=== PATIENT | male | born 1980 | race Caucasian/White ===

== ENCOUNTER 2016-08-13 12:48 | Emergency (ER) | payer MEDICARE, MEDICAID ==
[~2016-08-13] VITALS: Ht 175.3 cm; Wt 129.0 kg
[~2016-08-13 12:48] MED LIST: BUPR150T9 PO; CEFD300C9 PO; DEPRESSION PO; HYDR-3754 PO; LACT10SO33 PO; LINA145C PO; LORA10TA76 PO; NAPR500T3 PO; NF-FLON16G; PRED20TA PO; ROPI1TAB2 PO; RSP1T PO; SERT50TA PO
--- OUTSIDE RECORDS SUMMARY | 2016-08-13 12:54 | XMS REPORT | Continuity of Care Document ---
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 Name Role Phone MICHAELA ROMANO MD PCP [phone] Insurance Providers Payer Name Policy Number Subscriber Name Relationship Medicare A And B [id number] Zane Ching I 18 Self / Same As Patient [place] Medicaid [id number] Zane Ching I 18 Self / Same As Patient Advance Directives Directive Response Recorded Date/Time Advanced Directives No 03/09/16 1:15pm Chief Complaint and Reason for Visit Chief Complaint Dental Complaint Reason for Visit Risk for sexually transmitted disease [id number] Problems Active Problems Medical Problem Onset Date Status Acute superficial venous thrombosis of left lower extremity Unknown Acute Ankle injury ~11/21/2013 Acute Blood in stool Unknown Acute Edema of face 04/02/2013 Acute Fever 12/17/2012 Acute Gastroenteritis Unknown Acute Hematuria Unknown Acute Mucosa vesicle Unknown Acute Pain in calf 12/17/2012 Acute Petechiae Unknown Acute Photosensitivity dermatitis Unknown Acute Risk for sexually transmitted disease Unknown Acute Medications Current Home Medications Medication Dose Units Route Directions Days/Qty Instructions Start Date Ropinirole Hcl 1 Mg 1 Mg ORAL Daily 10/30/14 Past Home Medications Medication Directions Ordered Status Risperidone 1 Mg Tab, 1 Mg Oral Daily 12/17/12 Discontinued [Depression] , 25 Mg Oral Daily 12/17/12 Discontinued Cefdinir 300 Mg Capsule, 300 Mg Oral Twice A Day 12/17/12 Discontinued Hydrocodone Bit/Acetaminophen 1 Tab Tab, 1 Tab Oral Q 4H Prn 12/17/12 Discontinued Naproxen 500 Mg Tablet, 500 Mg Oral Twice A Day 11/21/13 Discontinued Prednisone 20 Mg Tablet, 20 Mg Oral As Directed 09/21/14 Discontinued Loratadine 10 Mg Tablet, 10 Mg Oral Daily 10/30/14 Discontinued Fluticasone Propionate 16 Gm [place], 16 Gm Nasal Daily 10/30/14 Discontinued Lactulose 10 Gm/15 Ml Solution, 10 Gm Oral Daily 10/30/14 Discontinued Linaclotide 145 Mcg Capsule, 145 Mcg Oral Daily 10/30/14 Discontinued Bupropion Hcl 150 Mg Tablet.er, 150 Mg Oral Daily 10/30/14 Discontinued Sertraline Hcl (Zoloft) 50 Mg Tablet, 50 Mg Oral Daily 09/15/15 Discontinued Social History Query Response Start Date Stop Date Smoking Status Current every day smoker Hospital Discharge Instructions No hospital discharge instructions. Plan of Care Discharge Date 03/09/16 3:25pm Disposition 01 HOME OR SELF-CARE Prescriptions See Medication Section Referrals MICHAELA ROMANO MD - Additional Instructions/Education See your doctor next week. ED RUI if any worse. Wrinse mouth with dilute salt solution after meals. Some of your test results may not be complete prior to your leaving the Emergency Department. The Emergency Department is not authorized to give test results over the phone. Please contact the doctor's office listed in this packet of information for your final results. Follow up with your primary care physician or return to the Emergency Department for worsening or worrisome symptoms. * Emergency Department phone number: [phone], x [phone]* MEDICAL RECORD If you need copies of your X-rays, call [phone]. If you need copies of your medical record, including lab results, a signed authorization for release of records will be required. A telephone call for release of Health Information is not allowed. BILLING Billing can sometimes be confusing and frustrating. To help avoid confusion in the future, please take a moment to acquaint yourself with the billing parties for services. SERVICE BILLING [facility] Emergency Room Services [facility] Physician Services [facility] X-rays [facility] Patients will receive bills for services from the appropriate provider. If you have any questions about your [facility] bill, our staff will be happy to assist you. Please call [phone], and ask for the billing department. THANK YOU for choosing [facility] as your emergency care provider! Care Plan and Goals ~~Discharge Care Plan~~ Problem: Sore throat Goal: Pain decreased from sore throat. Instructions: Gargle with warm salt water to help reduce swelling and pain. Drink plenty of fluids. Hot fluids, such as tea or soup, may help decrease throat irritation. Take medication(s) as directed. Follow up with primary care physician as directed. Functional Status No functional status results. Allergies, Adverse Reactions, Alerts Allergen Type Severity Reaction Status Last Updated Penicillin Allergy Unknown Active 03/09/16 Azithromycin Allergy Unknown Active 12/31/15 Immunizations No immunization records. Vital Signs Acute Vital Signs Vital Response Date/Time Temperature (Fahrenheit) 97.6 03/09/2016 3:36pm Pulse 91 bpm 03/09/2016 3:36pm Respirations 16 03/09/2016 3:36pm Height 5 ft 9 in Weight 276 lb Body Mass Index 40.0 kg/m^2 Results Laboratory Results Test Name Result Units Flags Reference Collection Date/Time Result Date/ Time Comments White Blood Count 5.20 10^3uL 4.0-11.0 03/09/2016 2:15pm 03/09/2016 2: 26pm Red Blood Count 4.67 10^6uL 4.50-5.50 03/09/2016 2:15pm 03/09/2016 2: 26pm Hemoglobin 15.3 g/dL 13.5-17.0 03/09/2016 2:15pm 03/09/2016 2:26pm Hematocrit 41.00 % 39.00-50.00 03/09/2016 2:15pm 03/09/2016 2:26pm Mean Corpuscular Volume 88 FL 80-100 03/09/2016 2:15pm 03/09/2016 2: 26pm Mean Corpuscular Hemoglobin 32.8 PG 26.0-34.0 03/09/2016 2:152015 2:26pm Mean Corpuscular Hemoglobin Concent 37.3 g/dL H 31.0-37.0 03/09/2016 2: 1503/09/2016 2:26pm Red Cell Distribution Width 11.6 % L 11.8-15.6 03/09/2016 2:152015 2:26pm Platelet Count 289 10^3uL 150-450 03/09/2016 2:1503/09/2016 2:26pm Mean Platelet Volume 9.0 FL 6.0-9.5 03/09/2016 2:1503/09/2016 2: 26pm Neutrophils (%) (Auto) 57 % 51-67 03/09/2016 2:03/09/2016 2:26pm Lymphocytes (%) (Auto) 29 % 20-46 03/09/2016 2:03/09/2016 2:26pm Monocytes (%) (Auto) 11 % 3-11 03/09/2016 2:03/09/2016 2:26pm Eosinophils (%) (Auto) 1 % 0-4 03/09/2016 2:15pm 03/09/2016 2:26pm Basophils (%) (Auto) 1 % 0-2 03/09/2016 2:03/09/2016 2:26pm Neutrophils # (Auto) 3.0 X10^3 03/09/2016 2:03/09/2016 2:26pm Lymphocytes # (Auto) 1.5 X10^3 03/09/2016 2:03/09/2016 2:26pm Monocytes # (Auto) 0.6 X10^3 03/09/2016 2:pm 03/09/2016 2:26pm Eosinophils # (Auto) 0.1 10^3uL 03/09/2016 2:pm 03/09/2016 2:26pm Basophils # (Auto) 0.0 10^3uL 03/09/2016 2:15pm 03/09/2016 2:26pm Sodium Level 142 mmol/L 135-150 03/09/2016 2:15pm 03/09/2016 2:37pm Potassium Level 3.9 mmol/L 3.5-5.1 03/09/2016 2:03/09/2016 2:37pm Chloride Level 105 mmol/L 98-108 03/09/2016 2:03/09/2016 2:37pm Carbon Dioxide Level 28 mmol/L 22-03/09/2016 2:1503/09/2016 2: 37pm Anion Gap 13.1 MEQ/L 3-15 03/09/2016 2:03/09/2016 2:37pm Blood Urea Nitrogen 10 mg/dL 7-03/09/2016 2:03/09/2016 2:37pm Creatinine 0.86 mg/dL 0.8-1.5 03/09/2016 2:03/09/2016 2:37pm BUN/Creatinine Ratio 12 -03/09/2016 2:03/09/2016 2:37pm Estimat Glomerular Filtration Rate 123.2 03/09/2016 2:2015 2:37pm Estimated GFR (Non- 101.8 03/09/2016 2:2015 2:37pm Glucose Level 99 mg/dL 70-110 03/09/2016 2:03/09/2016 2:37pm Calculated Osmolality 274 mosm/L L 280-300 03/09/2016 2:03/09/2016 2:37pm Calcium Level 9.5 mg/dL 8.8-10.8 03/09/2016 2:03/09/2016 2:37pm Calcium/Ionized Calcium Ratio 3.9 mg/dL 3.8-4.6 03/09/2016 2:03/09 2:37pm Total Bilirubin 1.2 mg/dL H 0.1-1.0 03/09/2016 2:03/09/2016 2:37pm Alkaline Phosphatase 80 U/L 38-126 03/09/2016 2:03/09/2016 2:37pm Aspartate Amino Transf (AST/SGOT) 43 U/L H 15-37 03/09/2016 2:03/09 2:37pm Alanine Aminotransferase (ALT/SGPT) 89 U/L H 30-65 03/09/2016 2: 2:37pm Total Protein 8.0 g/dL 6.4-8.5 03/09/2016 2:15pm 03/09/2016 2:37pm Albumin 4.3 g/dL 3.4-5.0 03/09/2016 2:15pm 03/09/2016 2:37pm Albumin/Globulin Ratio 1.162 1.1-1.8 03/09/2016 2:15pm 03/09/2016 2: 37pm Internal QC OK OK 03/09/2016 2:15pm 03/09/2016 3:04pm Procedures No known history of procedures. Encounters Encounter Location Arrival/Admit Date Discharge/Depart Date Attending Provider Departed Emergency Room [facility] 03/09/16 1:09pm 03/09/16 3:25pm WILVER SALAZAR MD Recent Diagnosis
[2016-08-13 13:00] VITALS: BP 150/112
== END 2016-08-13 13:21 | disposition home or self-care (01) ==
LOC: EDUNIT# 12:48 → ED 12:50
DX: G44.209 Tension-type headache, unspecified, not intractable (principal); R59.9 Enlarged lymph nodes, unspecified
CPT/HCPCS: 99281; 99282